=== PATIENT | male | born 1965 | race Hispanic/Latino ===

== ENCOUNTER 2021-05-18 15:40 | Emergency (ER) | payer SELFPAY ==
[2021-05-18 15:47] VITALS: BP 140/100
== END 2021-05-18 18:03 | disposition left against medical advice (07) ==
LOC: ED 15:40
DX: R46.89 Other symptoms and signs involving appearance and behavior (principal); Z53.21 Procedure and treatment not carried out due to patient leaving prior to being seen by health care provider